=== PATIENT | female | born 2000 | race Caucasian/White ===

== ENCOUNTER 2023-04-28 02:20 | Inpatient (IN) | payer OTHER ==
[2023-04-28 03:44] LABS: BASO % 0.5 % (0-2.0); EOS % 2.3 % (0-4.5); HEMATOCRIT 29.2 % (32.4-45.2); HEMOGLOBIN 9.9 GM/dL (10.7-15.3); LYMPH % 29.3 % (8-40); MCH 26.5 pg (25.7-33.7); MCHC 33.9 g/dl (32.0-36.0); MEAN CELL VOLUME 78.2 fl (80-96); MONO % 8.9 % (3.8-10.2); PLATELET COUNT 330 10^3/uL (134-434); RBC 3.74 M/mm3 (3.60-5.2); RDW 15.7 % (11.6-15.6); WHITE BLOOD COUNT 8.1 K/mm3 (4.0-10.0)
[2023-04-28 03:47] LABS: INR 0.91 (0.83-1.09); PROTHROMBIN TIME (PATIENT) 10.6 SEC (9.7-13.0)
[2023-04-28 03:50] LABS: ACTIVATED PTT 26.2 SECONDS (25.2-36.5)
[2023-04-28 03:51] LABS: CALCIUM 8.4 mg/dL (8.5-10.1); POTASSIUM 3.8 mmol/L (3.5-5.1)
[2023-04-28 03:53] LABS: BLOOD UREA NITROGEN 8.9 mg/dL (7-18)
[2023-04-28 03:56] LABS: CREATININE 0.6 mg/dL (0.55-1.3)
[2023-04-28 04:50] VITALS: BMI 26.5
[2023-04-28] MEDS: ELECTROLYTE-148 SOLN 1,000 ML IV SCH ×3 (07:05→22:20)
[2023-04-28] MEDS ORDERED: OXYTOCIN 30 UNITS in 0.9% NS 30 UNIT/500 ML INFUS.BAG IVPB ONE (08:25)
[2023-04-28] MEDS: OXYTOCIN 30 UNITS in 0.9% NS 30 UNIT/500 ML INFUS.BAG IVPB SCH (08:30)
[2023-04-28 14:01] LABS: POC NITRAZINE POS
[2023-04-28] MEDS ORDERED: FENTANYL/BUPIVACAINE/NS/PF - PCEA - 50 ML DISP.SYRIN EP ONE ×2 (15:57→21:07)
[2023-04-28] MEDS ORDERED: BUPIVACAINE HCL/PF 0.25% (2.5MG/ML) 10 ML VIAL ONE (15:58)
[2023-04-28] MEDS ORDERED: LIDO 2%/EPI 1:200000 PRESRVFRE (20 ML SDVIAL) ONE (15:58)
[2023-04-28] MEDS: FENTANYL/BUPIVACAINE/NS/PF - PCEA - 50 ML DISP.SYRIN EP SCH ×2 (16:20→21:08)
[2023-04-28] MEDS ORDERED: NALOXONE HCL 0.4 MG/ML VIAL IVPUSH PRN (16:33)
[2023-04-29] MEDS ORDERED: BUPIVACAINE HCL/PF 0.25% (2.5MG/ML) 10 ML VIAL ONE (00:01)
[2023-04-29] MEDS ORDERED: FENTANYL/BUPIVACAINE/NS/PF - PCEA - 50 ML DISP.SYRIN EP ONE (01:10)
[2023-04-29] MEDS ORDERED: OXYTOCIN 20 UNITS in 0.9% NS 20 UNIT/1,000 ML INFUS.BAG IV ONE (01:36)
[2023-04-29] MEDS ORDERED: LIDOCAINE HCL 1% PRESERVATIVE FREE - 30ML VIAL ONE (01:36)
[2023-04-29] MEDS: ELECTROLYTE-148 SOLN 1,000 ML IV SCH (03:15)
[2023-04-29] MEDS ORDERED: BENZOCAINE 28 GM HEMORRHOIDAL OINTMENT TP PRN (04:14)
[2023-04-29] MEDS ORDERED: BISACODYL 10 MG SUPP.RECT RC PRN (04:14)
[2023-04-29] MEDS ORDERED: WITCH HAZEL 50% (TUCKS) 40 PAD/JAR PAD TP PRN (04:14)
[2023-04-29] MEDS ORDERED: METHYLERGONOVINE MALEATE 0.2 MG/1 ML AMP IM PRN (04:14)
[2023-04-29] MEDS ORDERED: ACETAMINOPHEN 325 MG TABLET (FP) PO PRN (04:14)
[2023-04-29] MEDS ORDERED: BENZOCAINE 20% 57 GM BOTTLE TP PRN (04:14)
[2023-04-29] MEDS ORDERED: oxyCODONE HCL 5 MG TABLET PO PRN (04:14)
[2023-04-29] MEDS ORDERED: OXYTOCIN 20 UNITS in 0.9% NS 20 UNIT/1,000 ML INFUS.BAG IV SCH (04:15)
[2023-04-29] MEDS: IBUPROFEN 600 MG TABLET (FP) PO PRN ×2 (06:16→21:38)
[2023-04-29] MEDS: PRENATAL VITAMINS W/ FOLIC ACID TABLET (FP) PO SCH (09:44)
[2023-04-29] MEDS ORDERED: PATIENT'S OWN MEDICATION (NON-FORMULARY) (Prenatal Vit 93/Iron Fum/Folic [Prenatal Formula PO SCH (10:00)
[2023-04-30] MEDS: FENTANYL/BUPIVACAINE/NS/PF - PCEA - 50 ML DISP.SYRIN EP SCH (01:08)
[2023-04-30] MEDS: OXYTOCIN 30 UNITS in 0.9% NS 30 UNIT/500 ML INFUS.BAG IVPB SCH (01:08)
[2023-04-30 08:58] LABS: RBC 3.42 M/mm3 (3.60-5.2)
[2023-04-30 09:01] LABS: BASO % 0.4 % (0-2.0); EOS % 2.1 % (0-4.5); HEMATOCRIT 27.5 % (32.4-45.2); HEMOGLOBIN 8.8 GM/dL (10.7-15.3); LYMPH % 21.2 % (8-40); MCH 25.8 pg (25.7-33.7); MCHC 32.1 g/dl (32.0-36.0); MEAN CELL VOLUME 80.3 fl (80-96); MEAN PLT VOLUME 8.1 fl (7.5-11.1); MONO % 6.9 % (3.8-10.2); NEUT % 69.4 % (42.8-82.8); PLATELET COUNT 301 10^3/uL (134-434); RDW 15.9 % (11.6-15.6); WHITE BLOOD COUNT 9.9 K/mm3 (4.0-10.0)
[2023-04-30] MEDS: IBUPROFEN 600 MG TABLET (FP) PO PRN (09:23)
[2023-04-30] MEDS: PRENATAL VITAMINS W/ FOLIC ACID TABLET (FP) PO SCH (09:23)
[2023-04-30] MEDS ORDERED: SENNOSIDES/DOCUSATE COMBO (SENNA PLUS) TABLET (UD) PO PRN (22:00)
[2023-04-30 22:34] VITALS: PULSE 76
[2023-05-01] MEDS: PRENATAL VITAMINS W/ FOLIC ACID TABLET (FP) PO SCH (10:12)
[2023-05-01] MEDS: IBUPROFEN 600 MG TABLET (FP) PO PRN (10:12)
[2023-05-01 10:35] VITALS: BP 100/61; RESP 16; TEMP 98.1
== END 2023-05-01 12:55 | disposition home or self-care (01) | DRG 560 ==
LOC: JLDR 02:20 → J3W 04-29 05:30
PROVIDERS: ADMIT Obstetrics & Gynecology; ATTEND Obstetrics & Gynecology
PROC: 10E0XZZ Delivery of Products of Conception, External Approach (ICD-10-PCS; principal; 2023-04-28)
PROC: 0UQMXZZ Repair Vulva, External Approach (ICD-10-PCS; 2023-04-28)
DX: O42.02 Full-term premature rupture of membranes, onset of labor within 24 hours of rupture (principal); O69.81X0 Labor and delivery complicated by cord around neck, without compression, not applicable or unspecified; O70.0 First degree perineal laceration during delivery; Z3A.39 39 weeks gestation of pregnancy; Z37.0 Single live birth
CPT/HCPCS: 36415; 80048; 83986-QW; 85025; 85610; 85730; 86780; 86850; 86900; 86901

== ENCOUNTER 2024-12-28 13:21 | Emergency (ER) | payer OTHER ==
[2024-12-28 13:42] VITALS: BMI 25.5
[2024-12-28] MEDS ORDERED: ONDANSETRON 4 MG/2 ML VIAL ONE (14:20)
[2024-12-28] MEDS ORDERED: ACETAMINOPHEN INJECTION 100 ML ONE (14:20)
[2024-12-28] MEDS: ACETAMINOPHEN 1000 MG/100 ML BAG IVPB ONE (14:39)
[2024-12-28] MEDS: LACTATED RINGERS SOLUTION 1000 ML INFUS.BAG IV ONE ×2 (14:39→15:51)
[2024-12-28] MEDS: ONDANSETRON 4 MG/2 ML VIAL IVPB ONE (14:40)
[2024-12-28 14:48] LABS: ABSOLUTE IMMATURE GRANULOCYTES 0.06 x10^3/uL (0.0-0.031); BASOPHILS # 0.05 x10^3/uL (0.01-0.08); EOSINOPHIL % 0.5 % (0.7-5.8); EOSINOPHILS # 0.05 x10^3/uL (0.04-0.36); HEMATOCRIT 30.3 % (34.1-44.9); HEMOGLOBIN 10.2 g/dL (11.2-15.7); MCHC 33.7 g/dl (32.2-35.5); MEAN CELL VOLUME 86.3 fl (79.4-94.8); MEAN PLT VOLUME 9.7 fl (9.4-12.3); MONOCYTE # 0.41 x10^3/uL (0.24-0.86); MONOCYTE % 4.3 % (4.7-12.5); PLATELET COUNT 312 x10^3/uL (182-369); RDW 14.1 % (12.1-16.5)
[2024-12-28 15:05] LABS: INR 1.13 (0.83-1.09); PROTHROMBIN TIME (PATIENT) 12.3 SEC (9.7-13.0)
[2024-12-28 15:07] LABS: ACTIVATED PTT 25.6 SECONDS (25.2-36.5)
[2024-12-28 15:18] LABS: POTASSIUM 3.9 mmol/L (3.5-5.1)
[2024-12-28 15:20] LABS: ALBUMIN 3.4 g/dl (3.4-5.0); BLOOD UREA NITROGEN 15.8 mg/dL (7-18); CALCIUM 9.2 mg/dL (8.5-10.1)
[2024-12-28 15:23] LABS: CREATININE 0.6 mg/dL (0.55-1.3)
[2024-12-28 15:25] LABS: BILIRUBIN,TOTAL 0.6 mg/dL (0.2-1); TOT PROT 6.7 g/dl (6.4-8.2)
[2024-12-28 18:23] VITALS: BP 102/69; PULSE 84; RESP 15; TEMP 98.8
== END 2024-12-28 19:14 | disposition home or self-care (01) ==
LOC: JER 13:21
PROC: 3E033NZ Introduction of Analgesics, Hypnotics, Sedatives into Peripheral Vein, Percutaneous Approach (ICD-10-PCS; principal; 2024-12-28)
PROC: 3E033GC Introduction of Other Therapeutic Substance into Peripheral Vein, Percutaneous Approach (ICD-10-PCS; 2024-12-28)
DX: O04.6 Delayed or excessive hemorrhage following (induced) termination of pregnancy (principal); R00.0 Tachycardia, unspecified; R03.1 Nonspecific low blood-pressure reading; R10.30 Lower abdominal pain, unspecified; R42 Dizziness and giddiness
CPT/HCPCS: 36415; 76817-TC; 80053; 84702; 85025; 85610; 85730; 86850; 86900; 86901; 99285-25